=== PATIENT | male | born 1995 | race African-American/Black ===

== ENCOUNTER 2023-01-14 11:25 | Inpatient (IN) | payer OTHER ==
[~2023-01-14] VITALS: Ht 193 cm; Wt 88.7 kg
[2023-01-14 15:06] LABS: COVID AG,FIA SOURCE NASOPHARYNGEAL
[2023-01-14 15:13] LABS: INFLUENZA TYPE A NEGATIVE FOR TYPE A (NEGATIVE); INFLUENZA TYPE B NEGATIVE FOR TYPE B (NEGATIVE)
[2023-01-14 15:30] LABS: BASOPHILS % (AUTO) 0.8 % (0.0-2.0); EOSINOPHILS % (AUTO) 3.4 % (1.0-6.0); LYMPHOCYTES # (AUTO) 1.6 K/uL (1.0-4.8); LYMPHOCYTES % (AUTO) 36.7 % (22.0-44.0); MEAN CORPUSCULAR HEMOGLOBIN 27.3 pg (26.0-34.0); MEAN CORPUSCULAR HGB CONC 32.6 G/dL (31.0-37.0); MEAN CORPUSCULAR VOLUME 84 fL (80-100); MONOCYTES # (AUTO) 0.9 K/uL (0.1-1.0); NEUTROPHILS # (AUTO) 1.7 K/uL (1.8-7.7); NEUTROPHILS % (AUTO) 39.1 % (40.0-70.0); PLATELET COUNT (AUTO) 147 K/uL (150-450); RED BLOOD CELL COUNT(AUTO) 5.14 MIL/uL (4.50-5.90); RED CELL DISTRIBUTION WIDTH 13.3 % (11.5-14.5)
[2023-01-14 15:55] LABS: ANION GAP 5 mmol/L (8-16); CALCIUM, TOTAL 8.4 mg/dL (8.8-10.5); CARBON DIOXIDE 29 mmol/L (22-29); CHLORIDE 105 mmol/L (98-107); GLOMERULAR FILTR. RATE CALC > 60 mL/min (>60); GLUCOSE,RANDOM 88 mg/dL (70-110); POTASSIUM 3.5 mmol/L (3.5-5.1); SODIUM SERUM 139 mmol/L (136-145)
[2023-01-14] MEDS ORDERED: ONDANSETRON HCL 4 MG/2 ML VIAL IVP PRN (16:00)
[2023-01-14] MEDS ORDERED: MAGNESIUM HYDROXIDE SUSPENSION 30 ML UDCUP PO PRN (16:00)
[2023-01-14 16:01] LABS: ALANINE AMINOTRANSFERASE 23 U/L (12-78); ALBUMIN 3.7 g/dL (3.4-5.0); ALKALINE PHOSPHATASE 66 U/L (46-116); ASPARTATE AMINOTRANSFERASE 24 U/L (15-37); BILIRUBIN,TOTAL 0.3 mg/dL (0.1-1.0); TOTAL PROTEIN, SERUM 7.4 g/dL (6.4-8.2)
[2023-01-14 23:13] VITALS: BP 133/76
[2023-01-15] MEDS: ACETAMINOPHEN 325 MG TABLET PO PRN (00:19)
[2023-01-15 08:00] VITALS: BP 137/63
[2023-01-15 08:06] LABS: HIV 1-2 SCREEN 4TH GEN W/RFLX Non Reactive (Non Reactive)
[2023-01-15] MEDS: FAMOTIDINE 20 MG TABLET PO SCH (10:09)
[2023-01-15 16:01] VITALS: BP 142/85
[2023-01-15 19:50] VITALS: BP 137/74
[2023-01-15] MEDS ORDERED: KETOROLAC TROMETHAMINE 15 MG/ML VIAL IVP ONE (20:15)
[2023-01-16 04:42] VITALS: BP 129/62
[2023-01-16 05:08] LABS: QUANTIFERON, TB GOLD PLUS Negative (Negative)
[2023-01-16 07:39] VITALS: BP 124/59
[2023-01-16] MEDS: FAMOTIDINE 20 MG TABLET PO SCH (09:00)
[2023-01-16] MEDS: ACETAMINOPHEN 325 MG TABLET PO PRN (09:05)
[2023-01-16 16:00] VITALS: BP 127/89
[2023-01-16] MEDS: TraMADol HCL 50 MG TABLET PO PRN (20:44)
[2023-01-16 20:46] VITALS: BP 148/105
[2023-01-17 04:57] VITALS: BP 137/79
[2023-01-17 07:33] VITALS: BP 136/81
[2023-01-17] MEDS: FAMOTIDINE 20 MG TABLET PO SCH ×2 (08:25→08:29)
[2023-01-17] MEDS: TraMADol HCL 50 MG TABLET PO PRN ×2 (11:53→21:04)
[2023-01-17 15:25] VITALS: BP 149/66
[2023-01-17 20:43] VITALS: BP 158/75
[2023-01-17] MEDS: ZOLPIDEM TARTRATE 5 MG TABLET PO PRN (21:06)
[2023-01-18 04:27] VITALS: BP 114/70
[2023-01-18 08:00] VITALS: BP 113/56
[2023-01-18] MEDS: FAMOTIDINE 20 MG TABLET PO SCH ×2 (08:42→08:43)
[2023-01-18] MEDS: TraMADol HCL 50 MG TABLET PO PRN ×2 (14:38→22:34)
[2023-01-18 19:50] VITALS: BP 132/70
[2023-01-18] MEDS: ZOLPIDEM TARTRATE 5 MG TABLET PO PRN (22:34)
[2023-01-19 04:20] VITALS: BP 112/64
[2023-01-19 07:24] VITALS: BP 145/81
[2023-01-19] MEDS: FAMOTIDINE 20 MG TABLET PO SCH ×3 (08:20→09:00)
[2023-01-19 21:11] VITALS: BP 155/92
[2023-01-19] MEDS: ZOLPIDEM TARTRATE 5 MG TABLET PO PRN (23:27)
[2023-01-19] MEDS: TraMADol HCL 50 MG TABLET PO PRN (23:27)
[2023-01-20 05:00] VITALS: BP 123/71
[2023-01-20 07:39] VITALS: BP 103/58
[2023-01-20] MEDS: FAMOTIDINE 20 MG TABLET PO SCH (07:59)
[2023-01-20 16:00] VITALS: BP 110/66
== END 2023-01-21 10:37 | DRG 204 ==
LOC: EMS 11:31 → 6S 22:13
PROVIDERS: ADMIT Internal Medicine; ATTEND Internal Medicine
DX: R91.8 Other nonspecific abnormal finding of lung field (principal); F12.90 Cannabis use, unspecified, uncomplicated; Z20.822 Contact with and (suspected) exposure to COVID-19; Z86.16 Personal history of COVID-19
CPT/HCPCS: 71046; 80053; 85025; 86480; 87015; 87206; 87389; 87556; 87804; 94640; 99285; J1885; 36415-L1; 36415-TC